=== PATIENT | female | born 1985 | race Caucasian/White ===

== ENCOUNTER 2018-02-22 11:15 | Emergency (ER) | payer SELFPAY ==
[2018-02-22] MEDS ORDERED: HYDROcodone/Acetaminophen 10/325 mg Tablet ONE (11:48)
[2018-02-22] MEDS ORDERED: Ibuprofen 800 MG TAB ONE (11:48)
--- NOTE | 2018-02-22 12:27 | RAD ---
RADIOGRAPH RIGHT ANKLE 3 VIEWS: HISTORY: A 32-year-old female status post acute traumatic injury to the right ankle. FINDINGS: Lateral soft tissue swelling. Ankle mortise is symmetrical. Talar dome is maintained. No fracture or dislocation. IMPRESSION: 1. No fracture. 2. Acute, traumatic, mild lateral soft tissue edema. POS: [facility]
== END 2018-02-22 11:54 | disposition home or self-care (01) ==
LOC: MADERS 11:15
DX: S93.431A Sprain of tibiofibular ligament of right ankle, initial encounter (principal); X50.1XXA Overexertion from prolonged static or awkward postures, initial encounter

== ENCOUNTER 2019-02-01 18:49 | Emergency (ER) | payer SELFPAY ==
[2019-02-01] MEDS ORDERED: Oseltamivir 75 MG CAP ONE (19:58)
[2019-02-01] MEDS ORDERED: Dexamethasone 4 MG TAB ONE (19:58)
[2019-02-01] MEDS ORDERED: HYDROcodone/Acetaminophen 5/325 mg Tablet ONE (19:58)
== END 2019-02-01 20:15 | disposition home or self-care (01) ==
LOC: MADERS 18:49
DX: J11.1 Influenza due to unidentified influenza virus with other respiratory manifestations (principal)
CPT/HCPCS: 87804; 99283; J8540

== ENCOUNTER 2019-05-04 10:48 | Inpatient (IN) | payer SELFPAY ==
[~2019-05-04 10:48] MED LIST: Sodium Chloride 0.9% 1,000 ML BAG ONE; Sodium Chloride 0.9% 100 ML BAG ONE
--- NOTE | 2019-05-04 11:44 | RAD ---
CHEST 2 VIEWS: Date: 05/04/19 HISTORY: Cough. COMPARISON: 07/01/12. FINDINGS: Patchy alveolar parenchymal changes in the left lower lobe, evidence for left lower lobe pneumonia. H eart size is normal. The right lung is clear. IMPRESSION: Evidence for left lower lobe pneumonia. CODE T. POS: [facility]
[2019-05-04] MEDS ORDERED: Azithromycin 500 MG VIAL ONE ×2 (12:22→12:24)
[2019-05-04] MEDS ORDERED: cefTRIAXone\\ROCEPHIN 1 GM VIAL ONE (12:22)
[2019-05-04 12:51] LABS: #Lymphocytes 0.8 thou/uL (1.20-3.40); #Monocytes 0.5 thou/uL (0.11-0.59); %Basophils 0.5 % (0.0-1.0); %Eosinophils 0.2 % (0.0-10.0); %Lymphocytes 9.1 % (21.0-51.0); %Monocytes 6.2 % (0.0-10.0); Hemoglobin 13.8 g/dL (12.0-16.0); Mean Corpuscular HGB CONC 32.3 g/dL (32.0-36.0); Mean Corpuscular Hemoglobin 29.5 pg (27.0-31.0); Mean Corpuscular Volume 91.3 fL (78.0-98.0); Mean Platelet Volume 6.6 fL (7.4-10.4); Platelet Count 255 thou/uL (130-400); RBC Distribution Width 11.1 % (11.5-14.5); Red Blood Cell (RBC) Count 4.68 mill/uL (4.20-5.40); White Blood Cell (WBC) Count 8.4 thou/uL (4.8-10.8)
[2019-05-04 13:07] LABS: ALT (SGPT) 25 U/L (8-55); AST (SGOT) 23 U/L (5-34); Albumin 4.7 g/dL (3.5-5.0); Alkaline Phosphatase 84 U/L (40-150); Anion Gap 17 mmol/L (10-20); BUN (Urea Nitrogen) 10 mg/dL (7.0-18.7); Bilirubin, Total 0.6 mg/dL (0.2-1.2); Calc. Creatinine Clearance 0 mL/min (70-130); Calcium 9.5 mg/dL (7.8-10.44); Carbon Dioxide 25 mmol/L (22-29); Chloride 102 mmol/L (98-107); Estimated GFR-MDRD 88; Globulin 3.6 g/dL (2.4-3.5); Glucose 65 mg/dL (70-105); Protein, Total 8.3 g/dL (6.0-8.3); Sodium 140 mmol/L (136-145)
[2019-05-04] MEDS ORDERED: Ondansetron PF 4 MG/2 ML Vial SLOW IVP PRN (14:35)
[2019-05-04] MEDS ORDERED: Acetaminophen 325 MG TAB PO PRN (14:35)
[2019-05-04] MEDS ORDERED: HYDROcodone/Acetaminophen 5/325 mg Tablet PO PRN (14:35)
[2019-05-04 14:42] VITALS: BMI 28.5
[2019-05-04] MEDS: HYDROcodone/Acetaminophen 5/325 mg Tablet PO PRN ×2 (14:49→19:20)
[2019-05-04] MEDS ORDERED: diphenhydrAMINE 25 MG CAP PO PRN (19:21)
[2019-05-05 05:32] LABS: Anion Gap 17 mmol/L (10-20); BUN (Urea Nitrogen) 7 mg/dL (7.0-18.7); Calc. Creatinine Clearance 174 mL/min (70-130); Calcium 8.7 mg/dL (7.8-10.44); Carbon Dioxide 21 mmol/L (22-29); Chloride 107 mmol/L (98-107); Estimated GFR-MDRD Greater than 90; Glucose 83 mg/dL (70-105); Potassium 4.7 mmol/L (3.5-5.1); Sodium 140 mmol/L (136-145)
[2019-05-05 05:39] LABS: Band 6 % (5-11); Eosinophils 4 % (0-10); Hemoglobin 11.9 g/dL (12.0-16.0); Hypochromia SLIGHT = 6-15 cells (100X) (0-5/hpf); Lymphocytes 14 % (21-51); MDiff Complete? YES; Mean Corpuscular HGB CONC 33.3 g/dL (32.0-36.0); Mean Corpuscular Hemoglobin 29.8 pg (27.0-31.0); Mean Corpuscular Volume 89.5 fL (78.0-98.0); Mean Platelet Volume 6.5 fL (7.4-10.4); Monocytes 10 % (0-10); Neutrophil 63 % (42-75); Platelet Count 211 thou/uL (130-400); Platelet Morphology Comment Appears Adequate; RBC Distribution Width 10.6 % (11.5-14.5); RBC Morphology Abnormal; Reactive Lymphocytes 3 % (0-10); Red Blood Cell (RBC) Count 3.98 mill/uL (4.20-5.40); White Blood Cell (WBC) Count 5.7 thou/uL (4.8-10.8)
[2019-05-05 06:36] VITALS: BP 125/73; TEMP 99.6
--- NOTE | 2019-05-05 07:48 | HP ---
CHIEF COMPLAINT: Fever, cough, and back pain. HISTORY OF PRESENT ILLNESS: The patient is a 33-year-old white female, who presented to the emergency room on the day of admission complaining of a 3-day history of not feeling well. The patient said this first started out with just not much of an appetite, and then 2 days ago, she developed more cold symptoms and cough, and then the day prior to admission, she had temperatures up to 103. She had a cough productive of a greenish sputum, and she developed severe pain across her low back. The patient said she just felt exhausted and could not get comfortable. The patient's son had been brought to the emergency room 3 days ago and was found to have a pneumonia, was treated with Rocephin and was doing fine now. The patient is afraid that she may have the same thing. The patient was initially seen in the emergency room by the emergency room physician. Chest x-ray showed infiltrate in the left lower lobe. Right chest was clear. Her lab showed an H and H of 13.8 and 42.7 with a white cell count of 8400 with 84% segs, 9% lymphocytes, and a platelet count of 255. Her sodium was 140, potassium 4, BUN 10, creatinine 0.76, GFR 88, glucose 65, lactic acid 0.7. The patient had influenza A and B, nasal swab, that were both negative. In the emergency room, her blood pressure was 142/76 and O2 saturation 100% on room air. The patient was started on IV fluids. She was given Rocephin and azithromycin and then admitted. The patient requested admission because she felt so weak and had a high fever. The patient was seen later in the afternoon after her admission and she said she was feeling much better. Her pain across her back was better. She had received 2 hydrocodone, acetaminophen 5/325 and this had relieved her pain. Her breathing is much better and her appetite has come back. PAST MEDICAL HISTORY: The patient is a 3, para 3 children born by . Children are age 13, 10, and 6. The patient has had no other surgeries. She has no medical problems. Last menstrual period, 04/20/2019. PRESENT MEDICINES: None. ALLERGIES: SULFA DRUGS. REVIEW OF SYSTEMS: CONSTITUTIONAL: The patient said she began running fever up to 103 the day prior to admission and just feeling exhausted and having chills and extreme weakness. EYES, EARS, NOSE, AND THROAT: The patient complained of some nasal congestion and drainage. PULMONARY: Frequent cough productive of greenish sputum and pain across the low back. CARDIOVASCULAR: No chest pain. GI: No appetite, but no nausea, vomiting, or diarrhea. : Last menstrual period, 04/20/2019. HABITS: Alcohol, none. Tobacco none. SOCIAL HISTORY: The patient , lives with her family, her and children. PHYSICAL EXAMINATION: GENERAL: Shows a very pleasant 33-year-old white female, who is sitting up in bed, starting to eat her supper. She is alert and talkative, appears very comfortable, and in no distress. VITAL SIGNS: Show a temperature of 101.2, pulse 105, respirations 22, O2 saturation 98%, and blood pressure 149/76. Her weight 188. HEENT: Head, normocephalic and atraumatic. Eyes, pupils are equal, round, and reactive. Sclerae are nonicteric. Nose, normal. Mouth and throat, normal. NECK: Carotids are equal and strong. No bruits. Thyroid not enlarged. LUNGS: There are good breath sounds. The lungs are clear. HEART: Regular rate. No murmurs. ABDOMEN: Soft. No organomegaly. No areas of tenderness. EXTREMITIES: No edema. NEUROLOGIC: The patient is oriented x3 with no focal weakness. SKIN: No rash. IMPRESSION: Left lower lobe pneumonia, community-acquired. PLAN: The patient has been admitted to the hospital due to her extreme exhaustion. With the fluid she received in the emergency room, she is feeling a lot better. She has received her first dose of antibiotics. Her fever is just low-grade. We will continue the Rocephin and the azithromycin. If the patient does well, we will consider discharge in the morning. Job ID: [id number]
[2019-05-05] MEDS ORDERED: Enoxaparin Sodium 40 MG/0.4 ML SYRINGE SC SCH (09:00)
[2019-05-05] MEDS ORDERED: Azithromycin 500 MG in Sodium Chloride 0.9% 250 ML 250 ML IVPB SCH (13:00)
[2019-05-05] MEDS ORDERED: cefTRIAXone\\ROCEPHIN 1 GM in Sodium Chloride 0.9% 100 ML IVPB SCH (13:00)
--- NOTE | 2019-05-06 08:15 | DIS ---
DATE OF ADMISSION: 05/04/2019 DATE OF DISCHARGE: 05/05/2019 FINAL DIAGNOSIS: Community-acquired left lower lobe pneumonia. SUMMARY: The patient is a 33-year-old white female, who has been very healthy and has 3 children. She is on no home medications. She presented to the emergency room on the day of admission with a 24-hour history of high fever, severe achiness and fatigue, and severe pain across her lower posterior chest. This illness had started out about 48 hours prior to admission with just not feeling good, much more tired than usual and then culminated with the fever, achiness, and cough productive of a greenish sputum. Her 6-year-old son has been in the emergency room 2 days previously and found to have a pneumonia, was treated with Rocephin, and now has been doing very well. She was afraid that she may also have pneumonia. In the emergency room, her evaluation showed her oxygen saturation 98%. Her blood pressure was normal. She had a white cell count of 8400 with 84% segs, 9% lymphocytes, and hemoglobin 13.8. Her nasopharyngeal swab for influenza A and B were negative. Her chest x-ray showed an infiltrate in the left lower lobe. She was started on IV fluids and given IV Rocephin and azithromycin, and then admitted. The patient was seen on the afternoon of the day of her admission and already, she was feeling much better. Her cough was better. The pain in her back was gone and she was breathing very easily and her cough was less. The patient was re-evaluated on the morning of 05/05/2019, and she said she was feeling great and was having no cough. No breathing difficulty. No pain in her back and felt like she could manage well at home. On repeat exam, her chest was clear. Her maximum temperature had been 99.6. Her blood pressure was 125/73. Her repeat H and H was 11.9 and 35.6 with a white cell count of 5700 with 63% segs, 6% bands, 14% lymphocytes, and a platelet count of 211. Sodium 140, potassium 4.7, BUN 7, creatinine 0.62, glucose 83. Her blood cultures were negative x2. Her condition improved, where it felt like she could be managed as an outpatient. The patient was due to receive her second dose of Rocephin in the early afternoon, but this will be given early this morning and then after that, she will be able to go home. We will discharge her on her cefdinir and azithromycin. DISPOSITION DIET: Regular diet. ACTIVITIES: Gradually increase activities as she improves. MEDICATIONS: 1. Tylenol 325 mg two every 4 hours as needed. 2. Cefdinir 300 mg b.i.d. for 7 days. 3. Azithromycin 250 mg one daily x4 days. FOLLOWUP: The patient will be seen in my office and follow up in a week unless there are interval problems. Job ID: [id number]
== END 2019-05-05 09:57 | disposition home or self-care (01) | DRG 195 ==
LOC: MADERS 10:48 → MADMS 13:31
PROVIDERS: ADMIT Family Medicine; ATTEND Family Medicine
DX: J18.1 Lobar pneumonia, unspecified organism (principal); Z88.2 Allergy status to sulfonamides
CPT/HCPCS: 36415; 71046; 80048; 80053; 83605; 84443; 85025; 87040; 87804; J0456; J0696; J3490; J7050; Q0163

== ENCOUNTER 2019-10-14 07:34 | Emergency (ER) | payer SELFPAY | END 2019-10-14 08:40 | disposition home or self-care (01) | LOC: MADERS 07:34 | DX: J02.0 Streptococcal pharyngitis (principal); Z71.6 Tobacco abuse counseling | CPT/HCPCS: 99406 ==

== ENCOUNTER 2020-07-22 16:22 | Emergency (ER) | payer SELFPAY ==
[2020-07-22 16:43] LABS: Bilirubin Negative (Negative); Blood, Urine Trace (Negative); Glucose, Urine (Dipstick) Negative (Negative); Ketone, Urine 40 mg/dL (Negative); Leukocyte Small (Negative); Nitrite Negative (Negative); Protein, Urine (Dipstick) 100 mg/dL (Neg-Trace); Specific Gravity, Urine 1.025 (1.005-1.030); Urobilinogen 0.2 mg/dL (Less than 2)
[2020-07-22 16:44] LABS: Clarity Cloudy (Clear)
[2020-07-22 16:48] LABS: Bacteria/HPF Rare-Few HPF (None Seen); RBC/HPF 0-3 HPF (0-3); WBC/HPF 21-50 HPF (0-3)
[2020-07-22 16:49] LABS: Mucous/LPF 2+ LPF (<2+)
[2020-07-22] MEDS ORDERED: traMADol HCl 50 MG TAB ONE (17:03)
[2020-07-22] MEDS ORDERED: Ciprofloxacin 500 MG TAB ONE (17:03)
== END 2020-07-22 17:10 | disposition home or self-care (01) ==
LOC: MADERS 16:22
DX: N10 Acute pyelonephritis (principal)
CPT/HCPCS: 81003; 81015; 99284

== ENCOUNTER 2021-07-29 21:23 | Emergency (ER) | payer SELFPAY ==
[2021-07-29] MEDS ORDERED: Lidocaine Viscous Sol 2% 15 ml UD Cup ONE (21:39)
== END 2021-07-29 22:14 | disposition home or self-care (01) ==
LOC: MADERS 21:23
DX: T16.1XXA Foreign body in right ear, initial encounter (principal)
CPT/HCPCS: 69200

== ENCOUNTER 2022-08-04 09:44 | Emergency (ER) | payer BC, SELFPAY | END 2022-08-04 10:48 | disposition home or self-care (01) | LOC: MADERS 09:44 | DX: B35.3 Tinea pedis (principal); L03.116 Cellulitis of left lower limb | CPT/HCPCS: 36416; 87070; 87077; 87186; 87205; 99283 ==

== ENCOUNTER 2023-07-14 15:58 | Emergency (ER) | payer SELFPAY ==
[2023-07-14] MEDS ORDERED: Acetaminophen 500 MG TAB ONE (17:08)
[2023-07-14 17:47] LABS: SARS-CoV-2 NAA Rapid Test Not Detected (NotDetected)
[2023-07-14 18:30] LABS: #Eosinphils 0.2 thou/uL (0.0-0.7); #Lymphocytes 1.9 thou/uL (1.20-3.40); #Monocytes 0.6 thou/uL (0.11-0.59); #Neutrophils 3.2 thou/uL (1.40-6.50); %Basophils 0.8 % (0.0-1.0); %Eosinophils 2.7 % (0.0-10.0); %Lymphocytes 31.8 % (21.0-51.0); %Neutrophils 54.7 % (42.0-75.0); Hematocrit 42.2 % (36.0-47.0); Hemoglobin 14.3 g/dL (12.0-16.0); Mean Corpuscular HGB CONC 33.9 g/dL (32.0-36.0); Mean Corpuscular Hemoglobin 31.2 pg (27.0-31.0); Mean Corpuscular Volume 91.9 fl (78.0-98.0); Platelet Count 338 10x3/uL (130-400); RBC Distribution Width 10.8 % (11.5-14.5); Red Blood Cell (RBC) Count 4.59 mill/uL (4.20-5.40); White Blood Cell (WBC) Count 5.9 10x3/uL (4.8-10.8)
[2023-07-14 18:44] LABS: ALT (SGPT) 13 U/L (8-55); AST (SGOT) 19 U/L (5-34); Albumin 4.6 g/dL (3.5-5.0); Alkaline Phosphatase 63 U/L (40-110); Anion Gap 15 mmol/L (10-20); BUN (Urea Nitrogen) 12 mg/dL (7.0-18.7); Bilirubin, Total 0.3 mg/dL (0.2-1.2); Calc. Creatinine Clearance 0 mL/min (70-130); Calcium 10.1 mg/dL (7.8-10.44); Carbon Dioxide 28 mmol/L (22-29); Chloride 103 mmol/L (98-107); Estimated GFR 112; Glucose 96 mg/dL (70-105); Potassium 4.4 mmol/L (3.5-5.1); Protein, Total 7.6 g/dL (6.0-8.3); Sodium 142 mmol/L (136-145)
[2023-07-14 18:45] LABS: Troponin I Less than 0.010 ng/mL (< 0.028)
[2023-07-14] MEDS ORDERED: predniSONE 20 MG TAB ONE (20:30)
[2023-07-14] MEDS ORDERED: Doxycycline 100 MG CAP ONE (20:30)
== END 2023-07-14 20:35 | disposition home or self-care (01) ==
LOC: MADERS 15:58
DX: J22 Unspecified acute lower respiratory infection (principal); Z20.822 Contact with and (suspected) exposure to COVID-19
CPT/HCPCS: 71045; 71275; 80053; 83880; 84484; 85025; J7512